=== PATIENT | male | born 1975 | race African-American/Black ===

== ENCOUNTER 2018-11-09 06:03 | Day surgery (SDC) | payer OTHER ==
[~2018-11-09] VITALS: Ht 193 cm; Wt 173.3 kg
[~2018-11-09 06:03] MED LIST: JANU100T PO; LANTINJ4 SC; LISI-542 PO; LORA-674 PO; METF-877 PO
[2018-11-09] MEDS ORDERED: LIDOCAINE 2% MDV 20 ML VIAL As Ordered ONE (06:51)
[2018-11-09] MEDS ORDERED: dexameTHASONE 4 MG/ML 1ML VIAL (J1100) As Ordered ONE ×3 (06:51→08:16)
[2018-11-09] MEDS ORDERED: BUPIVACAINE HCL 0.5% 30 ML VIAL As Ordered ONE (06:52)
[2018-11-09] MEDS ORDERED: BACITRACIN PWD 50,000 UNITS VIAL As Ordered ONE (06:52)
[2018-11-09] MEDS ORDERED: NEOSPORIN GU IRRIG 20 ML VIAL As Ordered ONE (06:52)
[2018-11-09] MEDS ORDERED: LR 1,000 ML IV ONE (07:00)
[2018-11-09] MEDS ORDERED: ceFAZolin SOD 1 GM in D5W MINI-BAG PLUS 50 ML IV ONE (07:00)
[2018-11-09] MEDS ORDERED: ceFAZolin SOD 2 GM in IV 1 EA IV ONE (07:00)
[2018-11-09] MEDS ORDERED: LIDOCAINE 2% INJ 100 MG/5 ML SDV (FOR ANES.) As Ordered ONE (07:00)
[2018-11-09] MEDS ORDERED: PROPOFOL 200 MG/20 ML VIAL As Ordered ONE ×3 (07:00→08:30)
[2018-11-09] MEDS ORDERED: ONDANSETRON 4MG/2ML VIAL (J2405) As Ordered ONE (07:01)
[2018-11-09] MEDS ORDERED: KETOROLAC 60 MG/2 ML VIAL (J1885) As Ordered ONE (07:01)
[2018-11-09] MEDS ORDERED: fentaNYL 100 MCG/2 ML INJECTION (J3010) As Ordered ONE (07:02)
[2018-11-09] MEDS ORDERED: MIDAZOLAM INJ 2 MG/2 ML VIAL (J2250) As Ordered ONE (07:02)
[2018-11-09] MEDS ORDERED: D5W/0.45% SODIUM CHLORIDE 1,000 ML IV SCH (07:30)
[2018-11-09 09:30] VITALS: BP 140/83
[2018-11-09] MEDS ORDERED: PERCOCET 5MG/325MG TAB PO PRN (09:30)
[2018-11-09] MEDS ORDERED: ONDANSETRON 4MG/2ML VIAL (J2405) IV PRN (09:30)
--- NOTE | 2018-11-09 10:24 | REP ---
LEFT FOOT, THREE VIEWS: Three views of the left foot are performed in a portable fashion. Surgical defect is seen in the distal 1st metatarsal affixed by a metallic screw. Metallic pin is seen vertically through the phalanges of the second toe. There has been resection of the distal end of the proximal phalanx. The structures are well aligned. There is mild narrowing of the 1st metatarsophalangeal joint. Electronically Signed by Kareem Caldwell MD 11/09/2018 04:38 P
--- NOTE | 2018-11-23 18:47 | RO ---
DATE OF PROCEDURE: 11/09/2018 PREPROCEDURE DIAGNOSIS: Hallux valgus with metatarsus primus varus deformity left foot, hammer toe deformity second toe left foot. POSTPROCEDURE DIAGNOSIS: Hallux valgus with metatarsus primus varus deformity left foot, hammer toe deformity second toe left foot. OPERATIVE PROCEDURE: 1. Leonid bunionectomy with internal screw fixation. 3.0 mm x 27 mm times one. 2. Proximal interphalangeal joint arthroplasty with external wire fixation 0.045 times one second toe left foot. 3. Dorsal capsulotomy second metatarsophalangeal joint left foot. SURGEON: Ha Dominique DPM PROPELLER ENGINEER: None. ANESTHESIA: Local monitored anesthesia care (MAC). IRRIGATION: Dilute bacitracin, neomycin and polymyxin B solution. ESTIMATED BLOOD LOSS: Less than 5 mL. HEMOSTASIS: Ankle pneumatic tourniquet at 250 mmHg for 59 minutes left foot. HARDWARE UTILIZED: Arthrex headless 3.0 x 28 mm compression screw and a 0.045 Morelia wire. DESCRIPTION OF PROCEDURE: On 11/09/2018, this 43-year-old male was taken from his hospital room to the operating room and placed on the operating room table in supine position. Following the induction of IV sedation and local and regional anesthesia, the left lower extremity was prepped and draped in the usual aseptic manner. Attention was directed to the patient's left foot. After the ankle pneumatic tourniquet was rapidly inflated and attention was directed to the left first metatarsophalangeal joint where the following procedure was performed. LEONID BUNIONECTOMY AND INTERNAL SCREW FIXATION 3.0 MM X 28 MM X ONE LEFT FOOT: Attention was directed to the patient's left foot where there was noted to be a hallux valgus deformity. At this time, a 6 cm incision was placed over the first metatarsophalangeal joint medial to the extensor tendon, and the incision was deepened through the subcutaneous tissues, and all coursing venous tributaries were identified, underscored, clamped, cut, ligated, and electrocoagulated as necessary. A linear capsulotomy was performed in the same plane as the original skin incision. The capsule and periosteal structures were then dissected free in one continuous layer dorsally, medially and laterally thus creating a capsuloperiosteal type envelope. This brought into view the hypertrophied medial eminence of the first metatarsal which was osteotomized from distal to proximal through and through. Attention was then directed to the first intermetatarsal space where the dissection was carried down to the level of the fibular sesamoid which was sharply released. Attention was then directed to the medial surface of the first metatarsal where a V-shaped osteotomy was performed with the long plantar and short dorsal wing. Upon creation of this osteotomy, the capital fragment was transposed 40% of the width of the shaft of the first metatarsal and fixated with 3.0 x 28 mm Arthrex headless compression screw. The osteotomy was noted to be stable in all three cardinal planes. The redundant cortical spike was then osteotomized from dorsal to plantar through and through and extirpated from the wound in toto. Medial surface was rasped to a smooth contour. The wound was flushed with copious amounts of dilute bacitracin, neomycin and polymyxin B solution. Attention was directed toward closure where the capsular structures were coapted and maintained with #2-0 Monocryl in a simple interrupted type fashion. Subcutaneous tissue coapted and maintained utilizing #4-0 Monocryl in a simple interrupted type fashion. Skin incision coapted and maintained utilizing #5-0 Monocryl in a continuous subcuticular type fashion. Attention was then directed to the patient's second toe where the following procedure was performed: PROXIMAL INTERPHALANGEAL JOINT ARTHROPLASTY WITH EXTERNAL WIRE FIXATION LEFT FOOT: Attention was directed to the patient's second toe. There was noted to be a hammer toe deformity. At this time, a 2 cm incision was placed over the proximal interphalangeal joint. The incision was deepened to the subcutaneous tissues and all coursing venous tributaries were identified, underscored, clamped, cut, ligated and electrocoagulated as necessary. A linear tenotomy was performed and the medial and lateral collateral ligaments were sharply dissected free from the head of the proximal phalanx. Utilizing a power saw an osteotomy was performed at the anatomical neck of the proximal phalanx from dorsal to plantar, through and through. The cartilage was then osteotomized off the base of the middle phalanx. The wound was flushed with copious amounts of dilute bacitracin, neomycin and polymyxin B solution. Utilizing a 0.045 Morelia wire a wire was driven through the middle and distal phalanxes and retrograded into the proximal phalanx utilizing fluoroscopy for visualization. The wire did not enter the metatarsophalangeal joint and the wire was bent and a protective cap was placed on the distal end of the wire. There was still noted to be a dorsal contracture at the metatarsophalangeal joint. At this time the following procedure was performed. DORSAL CAPSULOTOMY SECOND METATARSOPHALANGEAL JOINT LEFT FOOT: Attention was directed to the patient's left foot where a small vertical incision was placed over the dorsal aspect of the second metatarsophalangeal joint. Utilizing a scalpel a dorsal capsulotomy was performed releasing the contracture at the metatarsophalangeal joint. The skin was then closed with #4-0 Prolene in a simple interrupted type fashion. Attention was then directed towards bandaging where a sterile compressive bandage was applied consisting of Adaptic, 4 x 4, 4 x 4 splint, Roopa, Kerlix and Coban. Ankle pneumatic tourniquet was rapidly deflated and instantaneous capillary refilling time was noted in digits 1 through 5 of the patients left foot. The patient having apparently tolerated the surgical procedure well was taken from the OR to the recovery room for further monitoring by the anesthesia department. Postoperative instructions given upon discharge.
== END 2018-11-09 10:42 | disposition home or self-care (01) ==
LOC: M SDC 06:03
PROVIDERS: ATTEND Podiatrist
DX: M20.12 Hallux valgus (acquired), left foot (principal); M20.42 Other hammer toe(s) (acquired), left foot; M20.5X2 Other deformities of toe(s) (acquired), left foot; I10 Essential (primary) hypertension; E10.9 Type 1 diabetes mellitus without complications; Z79.899 Other long term (current) drug therapy; Z79.4 Long term (current) use of insulin; Z68.42 Body mass index [BMI] 45.0-49.9, adult; Z87.891 Personal history of nicotine dependence
CPT/HCPCS: 28285; 28296; 73630; 88300; 97116; C1713; J0690; J1100; J1885; J2250; J2405; J3010